=== PATIENT | female | born 1935 | race Caucasian/White ===

== ENCOUNTER → 2016-04-11 | Outpatient (CLI) | payer OTHER, BC | LOC: BHCLAF 14:30 | PROVIDERS: ATTEND Internal Medicine Cardiovascular Disease | DX: I10 Essential (primary) hypertension (principal) | CPT/HCPCS: 93005-PO ==

== ENCOUNTER → 2016-04-13 | Outpatient (CLI) | payer OTHER, BC ==
[~2016-04-13] MED LIST: GADOBUTROL 10 ML VIAL IVP ONE
[2016-04-13 11:01] LABS: CREATININE 0.8 mg/dL (0.6-1.0); GLOMERULAR FILTRATION RATE > 60
--- NOTE | 2016-04-13 13:09 | MR ---
MR Angiogram of the Neck History: Blurred vision. Comparison: MRA head same day, MR brain February 13, 2016. Technique: After a preliminary timing bolus run, a three-dimensional vascular [id number]-[id number] study w as performed from the upper chest to the skull base, using a total of 9 mL of Gadavist intravenously. Images were manipulated by the radiologist at the computer workstation. Findings: The aortic arch has typical 3-vessel branching anatomy. The common carotid arteries and v ertebral arteries are patent. The proximal left common carotid artery is tortuous, with mild apparent stenosis in an area of tortuosity. Minimal atherosclerosis is suspected at the right carotid bifurca tion with minimal stenosis. The left carotid bifurcation appears normal. The vertebral arteries are p atent without evidence of obstruction or dissection. Degenerative change is present in the cervical s pine, with grade 1 anterolisthesis of C3 on C4, C4 on C5 and probable moderate spinal canal narrowing from C5 through C7. Impression: 1. Mild apparent stenosis in the proximal left common carotid artery in an area of tortuosity. 2. 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 Measurement of carotid stenosis is based on the residual internal carotid diameter with [place] Symptomatic Carotid Endarterectomy Trial (NASCET) based stenosis levels.
--- NOTE | 2016-04-13 13:13 | MR ---
MR Arteriogram of the [place] History: Altered consciousness, blurred vision. Comparison: MRA neck same day, MR brain February 13, 2016. Technique: A iyzw-ni-xmigif gradient echo technique was used for thin axial images at the skull base for evaluation of major vessels of the [place]. Three-dimensional technique was used with a 30-degree gradient echo flip angle and a traveling saturation band. Images were manipulated by the radiologist at the computer workstation. Findings: Major vessels of the [place] are adequately displayed, demonstrating no evidence of aneurysm, vascular malformation, flow-limiting stenosis, or occlusion. Degenerative change is pres ent in the cervical spine, with grade 1 anterolisthesis of C3 on C4, C4 on C5 and probable moderate s [place] canal narrowing from C5 through C7. Impression: 1. Negative MRA of the [place]. 2. 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
== END ==
LOC: FIMAGING 09:50
PROVIDERS: ATTEND Physician Assistant Medical
DX: R40.4 Transient alteration of awareness (principal); I65.22 Occlusion and stenosis of left carotid artery; H53.8 Other visual disturbances; M50.31 Other cervical disc degeneration, high cervical region; M50.321 Other cervical disc degeneration at C4-C5 level; M43.12 Spondylolisthesis, cervical region
CPT/HCPCS: 70544; 70549; A9585

== ENCOUNTER → 2016-04-16 | Outpatient (CLI) | payer OTHER, BC ==
--- NOTE | 2016-04-16 16:15 | CPEEG ---
[f rep st] ELECTROENCEPHALOGRAM DATE OF STUDY: 04/16/2016 INTERPRETATION: Normal EEG during wakefulness and sleep. There were no potentially epileptogenic ab normalities present during the recording. REPORT: This EEG contains 10 Hz alpha to the posterior head regions. There was no abnormal activati on at rest, during photic stimulation, or hyperventilation. The patient became drowsy and fell aslee p during the study. There was no abnormal activation during drowsiness, sleep, or during times of ar ousal. /[id number]/MODL
== END ==
LOC: FCPNEURO 12:22
PROVIDERS: ATTEND Physician Assistant Medical
DX: R40.4 Transient alteration of awareness (principal)

== ENCOUNTER → 2016-04-26 | Outpatient (CLI) | payer OTHER, BC | LOC: BHCLAF 10:45 | PROVIDERS: ATTEND Internal Medicine Cardiovascular Disease | DX: I25.10 Atherosclerotic heart disease of native coronary artery without angina pectoris (principal); J44.9 Chronic obstructive pulmonary disease, unspecified; I10 Essential (primary) hypertension | CPT/HCPCS: 93306-PO; 93880-PO ==

== ENCOUNTER → 2018-05-11 | Outpatient (CLI) | payer OTHER, BC | LOC: CIMAGING 13:03 | PROVIDERS: ATTEND Family Medicine | DX: N64.4 Mastodynia (principal) | CPT/HCPCS: 76641-PO ==